=== PATIENT | female | born 1955 | race Caucasian/White ===

== ENCOUNTER 2025-02-09 18:19 | Emergency (ER) | payer MEDICARE, OTHER, SELFPAY ==
[2025-02-09 18:23] VITALS: BP 124/83
[2025-02-09 18:35] LABS: % Basophils 0.5 % (0-2); % Eosinophils 1.8 % (0-6); % Immature Granulocytes 0.2 % (0-0.5); % Lymphocytes 33.4 % (20.5-51.1); % Monocytes 6.5 % (1.7-9.3); % Neutrophils 57.6 % (42.2-75.2); Absolute Eosinophils 0.1 10^3/uL (0-0.7); Absolute Lymphocytes 2.2 10^3/uL (1.2-3.4); Absolute Monocytes 0.4 10^3/uL (0.1-0.6); Absolute Neutrophils 3.7 10^3/uL (1.4-6.5); Hematocrit 35.2 % (37.0-47.0); Hemoglobin 12.2 g/dL (12.0-16.0); Mean Corp Hgb Conc. 34.7 g/dL (33.0-37.0); Mean Corpuscular Hgb 31.4 pg (27.0-31.0); Mean Corpuscular Volume 90.5 fL (81.0-99.0); Mean Platelet Volume 8.7 fL (7.4-10.4); Nucleated Red Blood Cells % 0 %; Platelet Count 222 10^3/uL (130-400); Red Blood Cell Count 3.89 10^6/uL (4.20-5.40); Red Cell Dist. Width 12.6 % (11.5-14.5); White Blood Cell Count 6.5 10^3/uL (4.8-10.8)
[2025-02-09 19:04] LABS: ALT (SGPT) 29 U/L (0-35); AST (SGOT) 27 U/L (14-36); Albumin 4.7 g/dl (3.5-5.0); Alkaline Phosphatase 54 U/L (38-126); Blood Urea Nitrogen 15 mg/dl (7-17); Calcium 9.3 mg/dl (8.4-10.2); Carbon Dioxide 26 mmol/L (22-30); Chloride 106 mmol/L (98-107); Glucose 113 mg/dl (70-99); Potassium 4.1 mmol/L (3.5-5.1); Sodium 138 mmol/L (135-145); Total Bilirubin 0.4 mg/dl (0.2-1.3); eGFR > 60.00
[2025-02-09 19:15] LABS: Troponin I < 0.012 ng/ml
[2025-02-09 21:32] VITALS: BP 109/72
[2025-02-09 22:10] VITALS: BMI 21.3
[2025-02-09 22:12] VITALS: BP 114/80
[2025-02-09 22:48] LABS: Troponin I < 0.012 ng/ml
[2025-02-09 23:00] VITALS: BP 112/96
--- NOTE | 2025-02-09 23:09 | ED.GENMED ---
History of Present Illness
General
Chief Complaint: Chest Pain
Source: patient and previous hospital records (Outpatient endoscopy and colonoscopy 2022)
Exam Limitations: none
Time Seen by Provider: 02/09/25 22:56
History of Present Illness
History of Present Illness:
This is a 69-year-old woman who has no significant past medical history save for history of GERD. She takes no medicines on a daily basis other than multivitamins and calcium.
This evening around 5:45, prior to dinner she developed abrupt onset of lower substernal chest pain that seem to radiate around to her back. No associated symptoms, no diaphoresis, no shortness of breath, no palpitations, no dizziness or
lightheadedness, no nausea, no abdominal pain. Chest pain lasted just a few minutes and then resolved without return. No known history of similar episodes of chest pain.
She has history of GERD which she states generally never bothers her.
She underwent endoscopy April 2013 due to father with history of gastric cancer. Upper endoscopy revealed gastritis and mild GERD.
She exercises on a regular basis without symptomatology.
No recent travel, no leg pain or swelling.
Along with father having history of gastric cancer, both mother and father have history of CAD, later in life.
Since arrival to the ED, patient has had no return of chest pain and continues to feel well.
Past History
Past History
ED Past Medical History: None and GERD
ED Past Surgical History: None
Social History
Tobacco: Non-smoker
Alcohol: Occasional (Rare alcohol use)
Drug: None
Personal:
Living: with family
Employment: Employed
Family History
Family History: CAD (Mother and father) and Cancer (Gastric cancer, father)
Phy Exam
Physical Exam
Physical Exam:
GENERAL: 69-year-old woman appears her stated age, awake and alert, pleasant, appears in no acute distress. is accompanying.
EYE: anicteric
NECK: Supple, nontender, no meningismus, no significant adenopathy.
ENT: oral mucosa is moist. No rhinorrhea.
CARDIAC: Regular rate and rhythm. no murmur. No palpable chest wall tenderness.
LUNGS: Clear breath sounds bilaterally, no acute respiratory distress, no wheezes/rales/rhonchi
ABDOMEN: Soft, nondistended, Minimal tenderness epigastric region with deep palpation only, no r/g, no cvat. normoactive BS.
NEUROLOGICAL: Alert and oriented x3, no focal neuro deficits.
SKIN: Warm and dry, normal color, skin intact. No rash.
MUSCULOSKELETAL: No C/C/E. peripheral pulses are full and equal b/l. No palpable tenderness.
PSYCH: Normal and appropriate interaction.
Scores
Heart Score for Chest Pain Patients
STEMI patient?: No
History: Slightly or Non-Suspicious
ECG: Normal
Age: >/= 65 years
Risk Factors: 1 or 2 Risk Factors (family history of CAD)
Troponin: </= Normal Limit
Heart Score for Chest Pain Patients: 3
Heart Score Risk: 2.5% MACE over next 6 weeks
Course
Orders/Labs/Results
Orders:
Orders
02/09/25 18:20
Electrocardiogram (*1) Urgent
Reason for Study: Chest Pain
EKG- Treatment ONCE
02/09/25 18:26
Complete Blood Count/With Diff Urgent
Comprehensive Metabolic Panel Urgent
Troponin I Urgent
02/09/25 21:42
EKG- Treatment ONCE
02/09/25 22:00
ECG [Electrocardiogram (*1)] Urgent
Reason for Study: Chest Pain
02/09/25 22:16
Troponin I Urgent
Abnormal Lab Results
02/09/25
18:26
RBC 3.89 L 10^6/uL
(4.20-5.40)
Hct 35.2 L %
(37.0-47.0)
MCH 31.4 H pg
(27.0-31.0)
Glucose 113 H mg/dl
(70-99)
02/09/25 18:26
02/09/25 18:26
Vital Signs
Initial and Last Documented VS:
Initial Vital Signs
Temp Pulse Resp BP Pulse Ox
97.5 F 72 16 124/83 99
02/09/25 18:23 02/09/25 18:23 02/09/25 18:23 02/09/25 18:23 02/09/25 18:23
Last Documented Vital Signs
Temp Pulse Resp BP Pulse Ox
97.5 F 68 14 114/80 98
02/09/25 18:23 02/09/25 22:15 02/09/25 22:15 02/09/25 22:12 02/09/25 22:17
MDM/Problems Addressed
Differential Diagnosis Includes:
Differential includes ACS, GERD, cholecystitis, gastritis, musculoskeletal chest pain.
No history of thromboembolism nor risk factors for such. No history of hypertension and blood pressure remains within normal limits. Aortic dissection is unlikely.
Reassuring that chest pain resolved within several minutes and has not returned. Also reassuring that no worrisome associated symptoms.
Laboratory studies are unremarkable including negative troponin x 2.
EKG is within normal limits, normal sinus rhythm, normal axis, normal intervals, no acute ST-T wave abnormalities. Repeat EKG similar and unchanged.
As patient remains pain-free and comfortable, she has had no associated cough nor prodromal URI symptoms, lungs are clear to auscultation. Vital signs remain within normal limits. This point no indication for imaging.
She does have family history of CAD in her mother and father but patient herself, other than family history is no significant risk factors. No history of diabetes. She reports no history of hyperlipidemia.
It is also reassuring that she exercises on a regular basis without symptomatology.
Will discharge to home with referral to our chest pain hotline.
Recommend follow-up with PCP as well.
Return precautions discussed.
*Pulse Oximetry
SaO2: 98
Oxygen Mode of Delivery: Room air
Patient hypoxic: no
*EKG
Interpreted by ED Provider?: Yes
Interpretation: normal
Comparison EKG: no comparison EKG present
Rate: normal
Rhythm: sinus
[place]: normal axis
Interval: normal interval
QRS Pattern: normal QRS
Ischemia: no ischemia
*Pediatric Anesthesiologist Interpretation
Rate: normal
Interpretation: normal
Rhythm: sinus
*Critical Care Note
Total Time (30-74mins, 75-104mins- exclusive of procedures): Not Applicable
ED Attending Note
-
Portions of this chart may have been created with voice recognition software.� Occasional wrong word or��sound alike� substitutions may have occurred due to the inherent limitations of voice recognition software.
Discharge Plan
Departure
Patient Disposition: Home (Routine Discharge)
Date of Disposition: 02/09/25
Time of Disposition: 23:09
Patient with high blood pressure during this ER visit?: No
Condition: Good
Discharge Problem:
acute nonspecific chest pain
Instructions: Chest Pain CBC Follow Up
Interventions
Interventions:
*Risk Screen - Suicide Last Done: 02/09/25 18:24
*General Assessment Last Done: 02/09/25 22:17
*Neglect/Abuse Screening Last Done: 02/09/25 18:24
*ED- Fall Risk Assessment Last Done: 02/09/25 22:17
*ED COVID-19 Vaccine History Last Done: 02/09/25 22:17
ED- Cardiac Assessment Last Done: 02/09/25 22:17
Discharge Date and Time
Print Language: JAPANESE
== END 2025-02-09 23:28 | disposition home or self-care (01) ==
LOC: EMR 18:19
PROVIDERS: Emergency Medicine; EMERGENCY PHYSICIAN Emergency Medicine
DX: R07.89 Other chest pain (principal); K21.9 Gastro-esophageal reflux disease without esophagitis; Z82.49 Family history of ischemic heart disease and other diseases of the circulatory system
CPT/HCPCS: 99283; 80053; 84484; 85025; 93005

== ENCOUNTER → 2025-02-26 14:13 | Outpatient (REF) | payer MEDICARE, OTHER, SELFPAY | LOC: RCS 14:13 | PROVIDERS: ATTENDING PHYSICIAN Internal Medicine; FAMILY PHYSICIAN Family Medicine | DX: R07.9 Chest pain, unspecified (principal); R06.09 Other forms of dyspnea; Z82.49 Family history of ischemic heart disease and other diseases of the circulatory system | CPT/HCPCS: 93017 ==

== ENCOUNTER → 2025-03-05 11:17 | Outpatient (REF) | payer MEDICARE, OTHER, SELFPAY | LOC: RCS 11:17 | PROVIDERS: ATTENDING PHYSICIAN Internal Medicine; FAMILY PHYSICIAN Family Medicine | DX: R07.9 Chest pain, unspecified (principal); R06.09 Other forms of dyspnea; Z82.49 Family history of ischemic heart disease and other diseases of the circulatory system | CPT/HCPCS: 93306 ==